=== PATIENT | male | born 1945 | race Caucasian/White ===

== ENCOUNTER 2016-08-09 15:39 | Emergency (ER) | payer MEDICARE ==
[~2016-08-09] VITALS: Ht 165.1 cm; Wt 60.5 kg
[~2016-08-09 15:39] MED LIST: ALBU3SOL2 IH; ALBU8.5H4 IH; COMBIVENTA IH; FLUT10.62 IH; GABA100C PO; LEVO750T23 PO; PRE20 PO
[2016-08-09 15:52] VITALS: BP 149/85; PULSE 97; RESP 26; O2SAT 97
--- NOTE | 2016-08-09 16:57 | DRSVH ---
PROCEDURE: X-RAY CHEST ONE VIEW, PORTABLE ([id number]) INDICATIONS: COPD, SHORT OF BREATH TECHNIQUE: One view of the chest was acquired. COMPARISON: [facility], CR, XR CHEST 2VW, 05/10/2016, 15:41. FINDINGS: Surgical changes and devices: None. Lungs and pleura: No pleural effusions or pneumothorax. Lungs are abnormal with chronic interstitia l prominence previously present but mildly accentuated by the current examination, and with stranding at the left lung base slightly more prominent potentially a manifestation of mild or early pneumonia in that area. Lung volumes are large, COPD is presumed.. Mediastinum: Mediastinal contours appear normal. Heart size is normal. Bones and chest wall: No suspicious bony lesions. Overlying soft tissues appear unremarkable. IMPRESSION: COPD, chronic interstitial prominence, possible mild or early pneumonia retrocardiac left lower lobe. Dictated by: Mesfin Chow M.D. on 08/09/2016 at 16:55 Approved by: Mesfin Chow M.D. on 08/09/2016 at 16:55
[2016-08-09 17:12] LABS: BASOPHILS % (AUTO) 0.2 % (0-3); EOSINOPHILS % (AUTO) 1.1 % (0-5); MONOCYTES % (AUTO) 11.2 % (4-12); Mean Corpuscular Hemoglobin 30.7 pg (27.0-35.0); Mean Corpuscular Volume 90.4 fL (81-100); NEUTROPHILS % (AUTO) 77.8 % (40-74); Platelet Count 319 bil/L (150-400)
[2016-08-09 17:40] LABS: Magnesium 2.3 mg/dL (1.6-2.6)
[2016-08-09 20:16] VITALS: BP 156/82; PULSE 93; RESP 15; O2SAT 94
--- NOTE | 2016-08-09 20:22 | ED.REPORT ---
HPI-Dyspnea / Wheezing Date of Service Aug 09, 2016 ED Provider: Leandra HobsonO. A 71 year old male with a history of COPD, GERD, tubular adenoma, and atypical chest pain presents to the ED with shortness of breath onset 3 days ago. He also reports wheezing, chest pain on inspiration, and cough. The patient is on 2 L O2 NC constantly. He requests antibiotics because his symptoms are similar to when he had pneumonia in the past. Nursing Notes Stated Complaint: POSS COPD/ DIFFICULTY BREATHING Chief Complaint: Respiratory Distress Nursing Notes Reviewed: Yes Allergies: Coded Allergies: No Known Allergies (Verified , 04/23/04) Scheduled Albuterol/Ipratropium (DuoNEB Nebule) 3 Ml Nebu 3 ML IH QID 1 NEB IH QID Fluticasone-Expunged Drug, Do Not Renew! (Flovent-Expunged Drug, Do Not Renew!) 13 Gm Aer.w.adap 220 MCG IH DAILY Gabapentin-Expunged Drug, Do Not Renew! (Neurontin-Expunged Drug, Do Not Renew! ) 100 Mg Capsule 1 TAB PO TID Levofloxacin-Expunged Drug, Do Not Renew! (Levofloxacin-Expunged Drug, Do Not Renew!) 750 Mg Tablet 750 MG PO HS PredniSONE-Expunged Drug, Do Not Renew! (PredniSONE-Expunged Drug, Do Not Renew! ) 20 Mg Tab 20 MG PO DAILY Two 20mg tabs daily for 3 days, then one 20mg tab daily for 3 days, then one- half tab for 4 days. Scheduled PRN Albuterol-Expunged Drug, Do Not Renew! (Albuterol-Expunged Drug, Do Not Renew!) 8.5 Gm Hfa.aer.ad 2 PUFFS IH QID PRN PRN Ipratropium/Albut-Expunged Drug, Do Not Renew (Combivent-Expunged Drug, Do Not Renew!) 14.7 Gm Aer.w.adap 14.7 GM IH PRN PRN PRN IF NOT USING DUONEB General Time Seen by MD: 20:22 Chief Complaint Shortness of breath Hx Obtained From: Patient, Spouse Arrived By: Walk-in Sudden in Onset?: No Onset Occurred: 3 days ago Symptom Duration: Since onset Location: : Substernal Quality: Painful Severity: Current: Moderate Severity: Maximum: Moderate Associated with: Reports: Cough, Wheeze, Denies: Fever Exacerbated by: Deep breath Pertinent Negative: Relieved by nothing Context Related History: Reports: COPD Recent Healthcare: No recent doctor visit Similar Sx Previous: Yes Past Medical History Past Medical History 1. COPD. 2. Gastroesophageal reflux disease. 3. History of atypical chest pain with clean coronaries on catheterization 2003. 4. Tubular adenoma. Past Surgical History Reports: Appendectomy Family History Positive for alcoholism. His mother in a car accident. Social History He was a heavy smoker, stopped in 2002 Alcohol Use: 1-3 per day Drug Use: Denies drug use Review of Systems Constitutional: Denies: Fever Respiratory: Reports: Non-productive cough, Shortness of breath, Wheezing Complete sys rev & neg: except as marked. GI: Denies: Vomiting Neurologic: Denies: Bladder dysfunction, Bowel dysfunction Physical Exam Initial Vital Signs Vital Signs (First) Date Time Temp Pulse Resp B/P Pulse Ox O2 Delivery O2 Flow Rate FiO2 08/09/16 15:52 36.7 97 26 149/85 97 Nasal Cannula 2 Initial VS: Reviewed Head / Eyes: Atraumatic, Normocephalic ENT: Conjunctiva normal, No scleral icterus Extremities: No swelling, No tenderness Skin: Warm, Dry, No cyanosis Neurologic: Alert, Oriented, Nonfocal Psychiatric: Mood/affect normal, Behavior normal, Normal thought content General/Constitutional: Awake, Alert Neck: Supple, Full range of motion Neck Vascular: Positive: JVD mild Resp Distress / Stridor: Positive: Resp distress mild Diminished Breath Sounds: Positive: Absent bilateral Cardiovascular: Heart rate NL, Regular rhythm Distant heart sounds Interpretation & Diagnostics Lab Results Interpretation Result Diagram: 08/09/16 1700 08/09/16 1700 Test 08/09/16 17:00 08/10/16 00:52 08/10/16 00:53 White Blood Count 15.3th/mm3 (3.8-10.1) Red Blood Count 4.89mil/mm3 (4.40-5.80) Hemoglobin 15.0g/dL (13.8-17.2) Hematocrit 44.2% (41.0-50.0) Mean Corpuscular Volume 90.4fL (81-100) Mean Corpuscular Hemoglobin 30.7pg (27.0-35.0) Mean Corpuscular Hemoglobin Concent 33.9% (32.0-37.0) Red Cell Distribution Width 13.2% (12.3-15.4) Platelet Count 319bil/L (150-400) Neutrophils (%) (Auto) 77.8% (40-74) Lymphocytes (%) (Auto) 9.4% (14-46) Monocytes (%) (Auto) 11.2% (4-12) Eosinophils (%) (Auto) 1.1% (0-5) Basophils (%) (Auto) 0.2% (0-3) Sodium Level 137mEq/L (134-144) Potassium Level 4.1mEq/L (3.5-5.2) Chloride Level 99mEq/L (97-108) Carbon Dioxide Level 22mmol/L (18-29) Blood Urea Nitrogen 20mg/dL (8-27) Creatinine 0.94mg/dL (0.76-1.27) Estimat Glomerular Filtration Rate 84mL/min (>59) Glucose Level 101mg/dL (60-99) Lactic Acid Level 0.8mmol/L (0.4-2.0) Calcium Level 8.6mg/dL (8.5-10.1) Magnesium Level 2.3mg/dL (1.6-2.6) Total Bilirubin 0.5mg/dL (0.0-1.2) Aspartate Amino Transf (AST/SGOT) 36U/L (0-50) Alanine Aminotransferase (ALT/SGPT) 35U/L (0-44) Alkaline Phosphatase 83U/L (25-160) Total Protein 7.0g/dL (6.4-8.4) Albumin 3.7g/dL (3.4-5.0) Hold Carbone Top Tube Received (Received) Troponin T 0.010ug/L (0.0-0.011) D-Dimer 0.7mg/L (<0.50) X-Ray Chest Interpretation Chest Xray Interpretation: IMPRESSION: COPD, chronic interstitial prominence, possible mild or early pneumonia retrocardiac left lower lobe. Dictated by: Mesfin Chow M.D. on 08/09/2016 at 16:55 View: Portable, 1 view Interpretation / Wet Read by: Interpret - Radiologist CT Chest Interpretation CONCLUSION: No evidence of pulmonary embolism or dissection. Findings suggestive of mild bronchitis. Scattered areas of emphysema with minimal areas of pulmonary fibrosis. Atelectasis versus scarring within the lingula. Transmitted to ED by Campos Reynaga M.D. at 08/10/2016 - 2:14:57 AM PST Study type: CT pulm angiogram Interpretation / Wet Read by: Interpret - Radiologist Re-Eval/Medical Decision Source of Hx: Old records Re-Evaluation/Progress #1: Time of Eval: 22:20 )( Re-Eval Resp / Chest: Mild wheezing (with crackles, diffuse) Patient Status: Condition improved Re-Evaluation/Progress Note: Patient feels better. Discussed the possibility of admission but the patient refuses. He feels better than he has in days and wishes to go home to his dogs. Re-Evaluation/Progress #2: Time of Eval: 02:52 )( Re-Eval Resp / Chest: Breath sounds normal, No wheezing Patient Status: Condition improved Re-Evaluation/Progress Note: O2 Sat 98% Discussed with patient x-ray results, diagnosis, and plan for discharge. Follow-up and return to the ER instructions given. Patient agrees with plan for care and all questions were addressed. Counseled Regarding: Diagnosis, Need for follow-up, When/why to return to ED Discharge & Departure Shift Change Sign-Out Response to Therapy: Improved Impression: Primary Impression: Respiratory distress Additional Impression: Acute exacerbation of chronic obstructive pulmonary disease Discharge Condition All VS Reviewed: Yes Condition: Stable Patient Instructions: Upper Respiratory Infection (ED), Chronic Obstructive Pulmonary Disease (ED) Additional Instructions: Omnicef twice daily for 7 days. Zithromax daily for 5 days. Prednisone daily for 5 days. Recheck tomorrow or the following day either here or with your primary care physician. Use your inhalers as instructed. Do not hesitate to return if any problems or any worsening symptoms. As we discussed I recommended hospital admission. It is important that you take the antibiotics and steroids. The CAT scan did not show a blood clot however it is suspicious for bronchitis. Referrals: Talia Helm MD (PCP) Scribe Attestation Portions of this note were transcribed by Sandy Triplett. I, Dr. Pina, personally performed the history, physical exam, and medical decision-making; I reviewed and confirmed the accuracy of the information in the transcribed note. Signed by: Micah Anderson, 08/10/2016, 03:05 copies to: Talia Helm MD, Todd P DO Aug 09, 2016 20:22 SANDY TRIPLETT Aug 09, 2016 20:40
[2016-08-09] MEDS ORDERED: cefTRIAXone Inj 2,000 MG in IV Premix 1 EACH IV ONE (20:30)
[2016-08-09] MEDS ORDERED: Albuterol 2.5 mg/3 mL Inhalation Solution NEB ONE ×2 (20:30→22:25)
[2016-08-09] MEDS ORDERED: Albuterol-Ipratropium 3 mL Inhalation Solution NEB ONE (20:30)
[2016-08-09] MEDS ORDERED: MethylprednisoLONE Sodium Succinate 62.5 mg/mL 2 mL Inj IVPUSH ONE (20:30)
[2016-08-09 20:51] VITALS: PULSE 91; RESP 18; O2SAT 92
[2016-08-09 22:29] VITALS: BP 122/67; PULSE 115; RESP 22; O2SAT 93
[2016-08-09 22:39] VITALS: PULSE 111; RESP 24; O2SAT 92
[2016-08-09 23:57] VITALS: RESP 30; O2SAT 93
[2016-08-10 01:04] VITALS: BP 152/99; PULSE 115; RESP 28; O2SAT 95
[2016-08-10 02:34] VITALS: PULSE 102; RESP 28; O2SAT 97
[2016-08-10 03:02] VITALS: BP 134/61; PULSE 99; RESP 28; O2SAT 95
--- NOTE | 2016-08-10 14:19 | DRSVH ---
PROCEDURE: CT ANGIO CHEST PULMONARY EMBOLISM ([id number]) INDICATIONS: dyspnea, hypoxia TECHNIQUE: After the administration of intravenous contrast, 2 mm thick sections acquired from the pulmonary api judson to the posterior costophrenic angles. 3-dimensional maximum intensity projection (MIP) coronal a nd sagittal reformats were then acquired through the thorax. For radiation dose reduction, the follo wing was used: automated exposure control, adjustment of mA and/or kV according to patient size. COMPARISON: [facility], CT, NECK/CHEST/ABD/PEL W/CONT (P), 06/12/2010, 11:53. FINDINGS: Image quality: Excellent. Pulmonary arteries: Pulmonary arteries are normal in size, and demonstrate no intraluminal filling d efects to suggest central pulmonary embolism. Lungs and pleura: Emphysematous changes as well as areas of minimal fibrosis, scarring and atelectasi s. No pleural effusions or pneumothorax. Central and peripheral airways are patent. Mediastinum: Heart size is normal, without pericardial effusion. No mediastinal or hilar adenopathy . Thoracic aorta is normal in caliber and enhancement. Esophagus is normal in caliber, without hiat al hernia. Bones and chest wall: No suspicious bony lesions. Ribs and thoracic spine appear intact throughout. Thyroid gland is unremarkable. No axillary or supraclavicular adenopathy. Abdomen: Partially visualized low attenuation exophytic focus along the right renal cortex is presen t with peripheral focus of increased density. This is unchanged compared to prior exam and likely rep resents a complex cyst. Visualized upper abdominal solid organs appear normal in the early arterial p hase of enhancement. IMPRESSION: 1. No evidence of pulmonary embolism. 2. Scattered areas of emphysema, atelectasis and scarring. Dictated by: Simran Cuellar M.D. on 08/10/2016 at 14:18 Approved by: Simran Cuellar M.D. on 08/10/2016 at 14:18
== END 2016-08-10 03:04 | disposition home or self-care (01) ==
LOC: SED 15:39
DX: J44.1 Chronic obstructive pulmonary disease with (acute) exacerbation (principal); R06.00 Dyspnea, unspecified; K21.9 Gastro-esophageal reflux disease without esophagitis; D12.6 Benign neoplasm of colon, unspecified; Z87.898 Personal history of other specified conditions; Z87.891 Personal history of nicotine dependence
CPT/HCPCS: 36415; 71010; 71275; 80053; 83605; 83735; 84484; 85025; 85379; 87040; 94644; 94645; 96365; 96372; 96375; 99285; J0696; J1650; J2930; J7613; J7620; Q9967